=== PATIENT | male | born 1975 | race Caucasian/White ===

== ENCOUNTER 2019-05-01 14:46 | Emergency (ER) | payer MEDICAID, SELFPAY ==
[2019-05-01 15:03] VITALS: PULSE 109; TEMP 36.8; O2SAT 100
--- NOTE | 2019-05-01 15:23 | ED.GENADUL_ITS ---
Discharge Plan Disposition Patient Disposition: OTHER Condition: Stable Discharge Details Chief Complaint: ETOHWithdr Clinical Impression: Alcohol intoxication Primary Care Provider: Elvi Amin ED Provider: Nathen Nicholas Home Meds and New Rx's Prescriptions: No Action multivitamin Tablet 1 tab PO DAILY RF: 0 tramadol 50 mg tablet 50 mg PO BID RF: 0 haloperidol 5 mg tablet 5 mg PO Q12H PRN RF: 0 albuterol sulfate [Ventolin HFA] 90 mcg/actuation HFA aerosol inhaler 1 puff IH Q6H PRN (Reason: shortness of breath or wheezing) Qty: 8.5 RF: 2 acetaminophen 325 mg capsule 650 mg PO ONCE PRNRF: 0 clonazepam 1 mg tablet 1 mg PO BID RF: 0 celecoxib [Celebrex] 100 mg capsule 100 mg PO BID RF: 0 Biotene Moisturizing Mouth [place],Non-Aerosol 1 applic MM BID PRNRF: 0 venlafaxine 150 mg tablet extended release 24hr 150 mg PO DAILY RF: 0 sodium chloride [Deep Sea Nasal] 0.65 % aerosol,spray 1 spray RICKIE Q12H PRN RF: 0 Anbesol (benzocaine) 10 % gel 1 applic MM Q6H PRN RF: 0 haloperidol 1 mg tablet 4 mg PO BID RF: 0 quetiapine [Seroquel] 200 mg tablet 200 mg PO HS RF: 0 vitamin E 200 unit capsule 400 unit PO DAILY RF: 0 Discharge Instructions Instructions: Alcohol Intoxication (ED) Additional Instructions: You are notably intoxicated. He will be reassessed by mental health once he is sober up. You are being given to the custody of [place] police at this time. Medical Decision Making This is a 43-year-old male with past medical history of schizophrenia, alcoholism, who presents today intoxicated. He recently is been running away from a penitentiary and getting notably intoxicated. Today he ran away from his penitentiary and got notably intoxicated. He was with [place] police but he refused to give a breathalyzer to [place] police. Because of this they were unable to keep him in the intoxicated holding tank until he was seen, assessed, and alcohol level could be assessed. He was brought to the ED for assessment of this. Exam demonstrates an intoxicated male with stable vital signs. No focal neurologic deficits. No complaints of chest or abdominal pain. No significant abnormalities noted on exam. No signs of obtundation. Although he is intoxicated his GCS is stable, requiring no additional intervention. Currently he denies any homicidal or suicidal ideations. Alcohol level is 314.7. Clinically he shows no clinical evidence of life-threatening illness requiring further medical management. I do feel that he at this time is medically cleared for disposition to the intoxication area for sobering. I did discuss this with mental health, they agree with this plan, and also feel that he can be seen and reassessed there. I do think it is very important that he is reassessed after he cirilo up. Mental health agrees to this. Patient will be given to the care of the [facility] police and the patient be brought to the intoxication center. I have extensively reviewed the treatment plan and discharge instructions with the patient. I have addressed all patient concerns at this time. The patient was made aware of what symptoms to monitor for that would warrant a return to the emergency department. Discussed the plan with the patient, they demonstrate verbal understanding and agreement with our assessment and plan at this time. HPI General Date/Time Provider Initiated Documentation: 05/01/19 14:48 . HPI Narrative: This is a 43-year-old male with a past medical history of PTSD, schizophrenia, and alcoholism who presents today for intoxication. He usually resides at a penitentiary, however he recently has been leaving the penitentiary and getting notably drunk. He was found in a field notably intoxicated today. Currently the weather is pleasant and not overly hot or cold. State police found the patient, however the patient refused to give a breathalyzer alcohol. Because of this and the uncertainty of his alcohol level he was brought to the ER for further assessment. Currently the patient appears intoxicated and aside from making comments related to his intoxication and his distrust of medical and police staff he has no other complaints. Related Data Home Medications Medication Instructions Recorded Confirmed acetaminophen 325 mg capsule 650 mg PO ONCE PRN cap 04/25/19 04/30/19 benzocaine 10 % mucosal gel 1 applic MM Q6H PRN gm 04/27/19 04/30/19 celecoxib 100 mg capsule 100 mg PO BID 04/27/19 04/30/19 clonazepam 1 mg tablet 1 mg PO BID 04/27/19 04/30/19 saliva stimulant comb. no.3 1 applic MM BID PRN ml 04/27/19 04/30/19 sodium chloride 0.65 % nasal spray 1 spray RICKIE Q12H PRN ml 04/27/19 04/30/19 aerosol venlafaxine 150 mg tablet,extended 150 mg PO DAILY 04/27/19 04/30/19 release 24 hr albuterol sulfate 90 mcg/actuation 1 puff IH Q6H PRN #8.5 gm 04/30/19 04/30/19 aerosol inhaler haloperidol 1 mg tablet 4 mg PO BID tab 04/30/19 04/30/19 haloperidol 5 mg tablet 5 mg PO Q12H PRN tab 04/30/19 04/30/19 multivitamin 1 tab PO DAILY 04/30/19 04/30/19 quetiapine 200 mg tablet 200 mg PO HS tab 04/30/19 04/30/19 tramadol 50 mg tablet 50 mg PO BID 04/30/19 04/30/19 vitamin E 200 unit capsule 400 unit PO DAILY cap 04/30/19 04/30/19 Previous Rx's Medication Instructions Recorded albuterol sulfate 90 mcg/actuation 1 puff IH Q6H PRN #8.5 gm 04/30/19 aerosol inhaler Allergies Allergy/AdvReac Type Severity Reaction Status Date / Time lactose AdvReac Verified 04/30/19 11:36 General Stated Complaint: PsychEval ESTHER: 4 Review of Systems Review of Systems All systems reviewed & are unremarkable except as noted in HPI and below PFSH Social History (Updated 04/30/19 @ 11:37 by Diana Gibson LPN) Smoking/Tobacco Use Status: Current every day Tobacco Type: cigarettes Tobacco: How many years used: 30 Alcohol Intake: current Drug use: Never Substance use type: does not use Household members: other Details: Lives in Assisted Living Home Housing: other Details: [place] Communication Needs: None Education Level: other Details: 9th grade current occupation: disabled What type of physical activity do you participate in: none Seatbelt use: always Drive intox or ride w/intox otr truck driver: No Water heater temp set <120 deg: Yes Working smoke detector in home: Yes Fire extinguisher in home: Yes Carbon monox detector in home: Yes Do you feel safe at home: No (unable to assess) Do you feel safe in your relationship?: No Exam Narrative Exam Narrative: 1.Const: Disheveled. 2.Eyes: PERRL, no conjunctival injection, and symmetrical lids. 3.ENT: Atraumatic external nose and ears. Dry MM. Neck: Symmetric, trachea midline, No thyromegaly. 4.CVS: +S1/S2, No murmurs or gallops. Peripheral pulses 2+ and equal in all extremities. Brisk capillary refill in all extremities. 5.RESP: Unlabored respiratory effort. Clear to auscultation bilaterally. No wheezes rales or rhonchi 6.GI: Soft, Nontender/Nondistended, No hepatosplenomegaly. No guarding or rebound. 7.MSK: Normocephalic/Atraumatic, Extremities w/o deformity or ttp No cyanosis or clubbing, Normal movement of all extremities 8.Skin: Warm, Dry. No rashes or lesions. 9.Neuro: director broadcast II-XII grossly intact. Sensation grossly intact, no focal neurologic deficits. 10.Psych: Notably intoxicated. GCS of 14. No evidence of airway compromise. Course Vital Signs Temperature 36.8 C 05/01/19 15:03 Pulse 109 H 05/01/19 15:03 Pulse Oximetry 100 05/01/19 15:03 Temperature 36.8 C 05/01/19 15:03 Pulse 109 H 05/01/19 15:03 Pulse Oximetry 100 05/01/19 15:03 Oxygen Delivery Method Room Air 05/01/19 15:03 Oxygen Flow Rate 0 05/01/19 15:03
[2019-05-01 15:39] LABS: ETHANOL BLOOD 314.7 mg/dL (<3)
[2019-05-01 15:59] VITALS: BP 104/68
== END 2019-05-01 16:16 | disposition other institution (70) ==
PROVIDERS: Emergency Provider Student in an Organized Health Care Education/Training Program; PCP Nurse Practitioner
DX: F10.220 Alcohol dependence with intoxication, uncomplicated (principal); Y90.8 Blood alcohol level of 240 mg/100 ml or more; F20.9 Schizophrenia, unspecified
CPT/HCPCS: 36415; 99285; 80320; 99283

== ENCOUNTER 2019-05-03 18:30 | Emergency (ER) | payer MEDICAID, SELFPAY ==
[2019-05-03 19:24] LABS: Abs Immature Grans 0.03 k/cumm (0.0-0.09); Absolute Basophil Count 0.02 k/cumm (0.0-0.2); Absolute Eosinophil Count 0.03 k/cumm (0.0-0.7); Absolute Lymphocyte Count 3.84 k/cumm (1.2-3.4); Absolute Monocyte Count 0.64 k/cumm (0.11-0.7); Absolute Neutrophil Count 6.79 k/cumm (1.2-6.7); Basophils % 0.2; Eosinophils % 0.3; HCT 46.3 % (40.0-50.0); HGB 16.4 g/dL (13.5-17.5); Immature Grans % 0.3; Lymphocytes % 33.8; Mean Corp. HGB Concentration 35.4 g/dL (32.0-36.0); Mean Corpuscular Hemoglobin 31.5 pg (27.0-33.0); Mean Platelet Volume 10.3 fL (8.0-11.0); Monocytes % 5.6; Neutrophils % 59.8; Platelet Count 250 x1000/uL (130-400); RBC Distribution Width 12.7 % (11.8-14.1); White Blood Cell Count 11.35 k/cumm (4.4-10.8)
[2019-05-03 19:26] VITALS: BP 123/71; PULSE 91; RESP 16; TEMP 36.5; O2SAT 95
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
[2019-05-03 19:42] LABS: Bilirubin Negative (Negative); Blood Negative (Negative); Clarity Clear (Clear); Glucose Negative (Negative); Ketones Negative (Negative); Leukocyte Esterase Negative (Negative); Nitrite Negative (Negative); Specific Gravity <= 1.005 (1.005-1.025); Urobilinogen 0.2 EU/dL (Up TO 0.2)
[2019-05-03 19:46] LABS: *AMPHETAMINES SCREEN URINE Negative (Negative); *BARBITURATES SCREEN URINE Negative (Negative); *BENZODIAZEPINES SCREEN URINE Negative (Negative); Cannabinoids THC Negative (Negative); Cocaine Screen,Urine Negative (Negative); METHADONE URINE SCREEN Negative (Negative); OPIATES URINE SCREEN Negative (Negative)
[2019-05-03 19:47] LABS: BUN 6 mg/dL (7-18); CREATININE 0.71 mg/dL (0.70-1.30); Calcium 8.5 mg/dL (8.5-10.1); Glucose 97 mg/dL (70-100)
[2019-05-03 19:48] LABS: ALT 45 U/L (16-63); AST 46 U/L (15-37); Alkaline Phosphatase 68 U/L (46-116); Anion Gap 13.2 mmol/L (3-11); Bilirubin, Total 0.3 mg/dL (0.2-1.0); CO2 26.8 mmol/L (21.0-32.0); Chloride 103 mmol/L (98-107); Magnesium 2.1 mg/dL (1.8-2.4); Potassium 3.2 mmol/L (3.5-5.1); Sodium 143 mmol/L (136-145); Total Protein 7.5 g/dL (6.4-8.2)
[2019-05-03 19:53] LABS: Tricyclic Antidepressants Negative (Negative)
[2019-05-03 19:53] LABS: ETHANOL BLOOD 318.6 mg/dL (<3)
--- NOTE | 2019-05-03 19:53 | DI.CT_ITS ---
SYMPTOM/DIAGNOSIS: FALL, HEAD TRAUMA, INTOXICATED NONCONTRAST HEAD CT: The exam is somewhat limited by motion artifact. There is no evidence of intracranial hemorrhage or skull fracture. The ventricles are normal in size. The sinuses appear clear where visualized. IMPRESSION: Mildly limited exam due to motion. No acute abnormality. CT CERVICAL SPINE: There is no evidence of fracture or subluxation. There is no prevertebral soft tissue swelling. There are mild degenerative disc changes. IMPRESSION: No acute abnormality.
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
[2019-05-03] MEDS: Acetaminophen 325 MG TAB 650 MG PO (20:52)
[2019-05-03] MEDS: Potassium Chloride 20 MEQ TABCR 40 MEQ PO (20:53)
--- NOTE | 2019-05-03 20:55 | NUR.NOTE ---
Nursing Note: found pt smoking a cigarette in the room took the cigarette from pt and took his cigartetes from him pt got up set and followed me out of the room i helped pt back to his room. and told him there was no smoking in the hospital told pt he could have his cigarettes back when he left the building
--- NOTE | 2019-05-03 20:58 | NUR.NOTE ---
Nursing Note: now i have a cpso to sit with pt to help keep him in his room until [facility] get here
--- NOTE | 2019-05-03 21:20 | NUR.NOTE ---
Nursing Note: Patient is disruptive to the unit and other patients. Creating an unsafe environment for himself and others. Threatening staff to take them out. Pt demanding Dilaudid or pain medication that he can feel in his head. Pt very agitated and aggressive towards male staff. Patient very unsteady with gait and stumbles frequently. This scribe caught him a few times. Patient refusing to let staff or promotion writer remove his personal belongings which included a marijuana pipe and wallet with chain and other items in pockets. This scribe was able to take a needle molder and a can of tobacco which had fallen on floor. Patient demanding to go and smoke. Patient required redirection but continued to increase his aggressive behaviors with MD and LAUREANO present. was called to ER as patient requested to speak to . Patient continued to escalate and requested that [facility] be called as patient is medically cleared and the situation was becoming dangerous with patient's escalating and threatening behaviors. [facility] arrived and agreed to take patient in protective custody to the [facility] until [facility] could come and evaluate and complete paperwork for going to [facility] for protective custody.
== END 2019-05-03 21:16 | disposition home or self-care (01) ==
PROVIDERS: Emergency Provider Nurse Practitioner Family; PCP Nurse Practitioner
DX: F10.120 Alcohol abuse with intoxication, uncomplicated (principal); S00.81XA Abrasion of other part of head, initial encounter; S80.211A Abrasion, right knee, initial encounter; W01.0XXA Fall on same level from slipping, tripping and stumbling without subsequent striking against object, initial encounter
CPT/HCPCS: 36415; 80053; 80307; 99284; 70450; 72125; 80320; 81003; 83735; 85025

== ENCOUNTER 2019-05-04 20:23 | Emergency (ER) | payer MEDICAID, SELFPAY ==
[2019-05-04 20:20] VITALS: BP 144/94; PULSE 108; RESP 16; TEMP 36.6; O2SAT 96
--- NOTE | 2019-05-04 20:33 | ED.GENADUL_ITS ---
Discharge Plan Disposition Patient Disposition: HOME Condition: Stable Discharge Details Clinical Impression: Alcohol abuse Primary Care Provider: Elvi Amin ED Provider: Surinder Charles Home Meds and New Rx's Prescriptions: Continued multivitamin Tablet 1 tab PO DAILY RF: 0 tramadol 50 mg tablet 50 mg PO BID RF: 0 haloperidol 5 mg tablet 5 mg PO Q12H PRN RF: 0 albuterol sulfate [Ventolin HFA] 90 mcg/actuation HFA aerosol inhaler 1 puff IH Q6H PRN (Reason: shortness of breath or wheezing) Qty: 8.5 RF: 2 acetaminophen 325 mg capsule 650 mg PO ONCE PRNRF: 0 clonazepam 1 mg tablet 1 mg PO BID RF: 0 celecoxib [Celebrex] 100 mg capsule 100 mg PO BID RF: 0 Biotene Moisturizing Mouth [place],Non-Aerosol 1 applic MM BID PRNRF: 0 venlafaxine 150 mg tablet extended release 24hr 150 mg PO DAILY RF: 0 sodium chloride [Deep Sea Nasal] 0.65 % aerosol,spray 1 spray RICKIE Q12H PRN RF: 0 Anbesol (benzocaine) 10 % gel 1 applic MM Q6H PRN RF: 0 haloperidol 1 mg tablet 4 mg PO BID RF: 0 quetiapine [Seroquel] 200 mg tablet 200 mg PO HS RF: 0 vitamin E 200 unit capsule 400 unit PO DAILY RF: 0 Discharge Instructions Instructions: Abuse of Alcohol (ED) Additional Instructions: you are medically cleared to be discharged from the emergency department until sober. Medical Decision Making 43 yo male with hx of alcohol abuse who was seen last night after a fall while intoxicated with negative imaging comes in again with intoxication. Has no new trauma to the head, states his right toe hurts from falling last night. Has no signs of trauma to the toe and has full rom without swelling so do not feel xrays indicated given unlikely fracture. He is hd stable without other complaints. He is caox4, does smell of alcohol and admits to drinking tonight. Given lack of other complaints do not feel other workup indicated, has full rom of all extremities. Feel he can be d/c'd in PD care until sober Differential Diagnosis contusion, sprain, alcohol intoxication HPI General Mode of arrival: EMS . Date/Time Provider Initiated Documentation: 05/04/19 20:33 . Limitations to Documentation: other (intoxication) . Information obtained by: patient . History of Present Illness 43 year old M presents to the emergency department with the chief complaint of right toe pain, and it has been constant. No relieving factors improve symptom(s), No exacerbating factors reported . Patient did receive the following treatments prior to arrival, none Related Data Home Medications Medication Instructions Recorded Confirmed acetaminophen 325 mg capsule 650 mg PO ONCE PRN cap 04/25/19 05/03/19 benzocaine 10 % mucosal gel 1 applic MM Q6H PRN gm 04/27/19 05/03/19 celecoxib 100 mg capsule 100 mg PO BID 04/27/19 05/03/19 clonazepam 1 mg tablet 1 mg PO BID 04/27/19 05/03/19 saliva stimulant comb. no.3 1 applic MM BID PRN ml 04/27/19 05/03/19 sodium chloride 0.65 % nasal spray 1 spray RICKIE Q12H PRN ml 04/27/19 05/03/19 aerosol venlafaxine 150 mg tablet,extended 150 mg PO DAILY 04/27/19 05/03/19 release 24 hr albuterol sulfate 90 mcg/actuation 1 puff IH Q6H PRN #8.5 gm 04/30/19 05/03/19 aerosol inhaler haloperidol 1 mg tablet 4 mg PO BID tab 04/30/19 05/03/19 haloperidol 5 mg tablet 5 mg PO Q12H PRN tab 04/30/19 05/03/19 multivitamin 1 tab PO DAILY 04/30/19 05/03/19 quetiapine 200 mg tablet 200 mg PO HS tab 04/30/19 05/03/19 tramadol 50 mg tablet 50 mg PO BID 04/30/19 05/03/19 vitamin E 200 unit capsule 400 unit PO DAILY cap 04/30/19 05/03/19 Previous Rx's Medication Instructions Recorded albuterol sulfate 90 mcg/actuation 1 puff IH Q6H PRN #8.5 gm 04/30/19 aerosol inhaler Allergies Allergy/AdvReac Type Severity Reaction Status Date / Time lactose AdvReac Verified 05/03/19 19:38 General ESTHER: 4 Review of Systems Review of Systems All systems reviewed & are unremarkable except as noted in HPI and below Constitutional Denies chills, Denies fever(s) and Denies weakness Cardiovascular Denies chest pain and Denies dyspnea Respiratory Denies cough and Denies dyspnea Gastrointestinal Denies abdominal pain, Denies nausea and Denies vomiting Musculoskeletal Denies joint swelling Neurologic Denies weakness [facility] Social History Smoking/Tobacco Use Status: Current every day Tobacco Type: cigarettes Tobacco: How many years used: 30 Alcohol Intake: current Drug use: Never Substance use type: marijuana Details: pt states that he was drinking cider and smells of etoh and said he had thc in him Household members: other Details: Lives in Assisted Living Home Housing: other Details: [place] Communication Needs: None Education Level: other Details: 9th grade current occupation: disabled What type of physical activity do you participate in: none Seatbelt use: always Drive intox or ride w/intox driver's license 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: No Water heater temp set <120 deg: Yes Working smoke detector in home: Yes Fire extinguisher in home: Yes Carbon monox detector in home: Yes Do you feel safe at home: No (unable to assess) Do you feel safe in your relationship?: No Exam Const General: no acute distress Orientation: alert HENMT Head: normal to inspection Ears: external ears normal General nose exam: external nose normal Mouth: moist mucous membranes Eyes General: appearance normal, both eyes and all related structures Neck Neck: normal visual inspection Resp Effort & Inspection: normal respiratory effort and able to speak in complete sen tences Cardio Rate: regular rate Skin General skin exam: no rashes or lesions noted Neuro General: alert and oriented x3 Extrem General: normal to inspection Psych Mental Status: mental status grossly normal
[2019-05-04 20:46] VITALS: RESP 16
[2019-05-04 20:49] VITALS: BP 144/94; PULSE 108; RESP 16; TEMP 36.6; O2SAT 96
== END 2019-05-04 20:43 | disposition home or self-care (01) ==
PROVIDERS: Emergency Provider Emergency Medicine; PCP Nurse Practitioner
DX: M79.674 Pain in right toe(s) (principal); F10.120 Alcohol abuse with intoxication, uncomplicated; J44.9 Chronic obstructive pulmonary disease, unspecified; F17.210 Nicotine dependence, cigarettes, uncomplicated; F25.0 Schizoaffective disorder, bipolar type
CPT/HCPCS: 36416; 82962; 99285; 99284

== ENCOUNTER 2019-05-07 15:30 | Emergency (ER) | payer MEDICAID, SELFPAY ==
[2019-05-07] VITALS (52 sets, daily range): BP systolic 99–138; BP diastolic 62–86; PULSE 86–101; RESP 16–26; TEMP 36.3–36.6; O2SAT 83–99
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
--- NOTE | 2019-05-07 16:10 | PDOC.MHCN ---
Date of service: 05/07/19 Time of Service: 16:10
--- NOTE | 2019-05-07 16:11 | PDOC.MHCN ---
Mental Health Crisis Note Presenting Issue How did you arrive at the ED and why did you come: Patient was brought to the ER by ambulance after being picked up by Police for nbeing intoxicated. Precipitating Factors Patient denies any intent to harm self or nothers. Denies H/I and S/I Disposition BEHAVIOR: Patient was cooperating with staff. EYE CONTACT: Avoident. MOOD: Subdued, as a result of intoxication. AFFECT: Varied. APPETITE: Patient reports being hungry. SLEEP(trouble falling/staying asleep: Unknown. The patient was having difficult staying awake. Plan Patient is to be taken into custody as an intoxicated person.
--- NOTE | 2019-05-07 16:32 | NUR.NOTE ---
Nursing Note: Jeff RUIZ states he gave Marlon his evening meds at approx 1330 today--he is unsure what they were--according to His [facility] med sheet his 1999 evening meds include Celecoxib 100 mg--Haloperidol 4 mg---? Tramadol 50 mg--and Quetiapine XR 200 mg.-----Per Melida KabaPreet gave him his AM and PM medications yesturday-----See Med MAR from [facility]. PT has no meds from them because he has eloped from them and has been in [facility] for 1.5 weeks.
[2019-05-07] MEDS: Normal Saline 1,000 ML 1000 ML IV (17:15)
[2019-05-07] MEDS: Thiamine 200 MG/2 ML VIAL 100 MG IV (17:22)
[2019-05-07 17:25] LABS: Abs Immature Grans 0.02 k/cumm (0.0-0.09); Absolute Basophil Count 0.02 k/cumm (0.0-0.2); Absolute Eosinophil Count 0.06 k/cumm (0.0-0.7); Absolute Monocyte Count 0.62 k/cumm (0.11-0.7); Absolute Neutrophil Count 3.85 k/cumm (1.2-6.7); Basophils % 0.2; Eosinophils % 0.7; HCT 43.5 % (40.0-50.0); HGB 15.2 g/dL (13.5-17.5); Immature Grans % 0.2; Lymphocytes % 43.4; Mean Corp. HGB Concentration 34.9 g/dL (32.0-36.0); Mean Corpuscular Hemoglobin 30.8 pg (27.0-33.0); Mean Corpuscular Volume 88.1 fL (80-95); Mean Platelet Volume 9.8 fL (8.0-11.0); Monocytes % 7.7; Neutrophils % 47.8; Platelet Count 212 x1000/uL (130-400); RBC 4.94 m/cumm (4.50-6.00); RBC Distribution Width 12.7 % (11.8-14.1); White Blood Cell Count 8.07 k/cumm (4.4-10.8)
[2019-05-07 17:26] LABS: *AMPHETAMINES SCREEN URINE Negative (Negative); *BARBITURATES SCREEN URINE Negative (Negative); *BENZODIAZEPINES SCREEN URINE Negative (Negative); Cannabinoids THC Negative (Negative); Cocaine Screen,Urine Negative (Negative); METHADONE URINE SCREEN Negative (Negative); OPIATES URINE SCREEN Negative (Negative)
[2019-05-07 17:27] LABS: Tricyclic Antidepressants Negative (Negative)
[2019-05-07 17:40] LABS: ALT 35 U/L (16-63); AST 27 U/L (15-37); Albumin 3.6 g/dL (3.4-5.0); Alkaline Phosphatase 77 U/L (46-116); Anion Gap 10.9 mmol/L (3-11); BUN 4 mg/dL (7-18); Bilirubin, Total 0.2 mg/dL (0.2-1.0); CO2 29.1 mmol/L (21.0-32.0); CREATININE 0.59 mg/dL (0.70-1.30); Calcium 8.3 mg/dL (8.5-10.1); Chloride 107 mmol/L (98-107); Glucose 108 mg/dL (70-100); Potassium 3.6 mmol/L (3.5-5.1); Sodium 147 mmol/L (136-145); Total Protein 6.7 g/dL (6.4-8.2)
[2019-05-07 17:41] LABS: ETHANOL BLOOD 202.4 mg/dL (<3)
--- NOTE | 2019-05-07 21:24 | NUR.NOTE ---
Nursing Note: pt awake and alert. had refused CT but after talking with the MD he has agreed to the CT and then get some food.
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
== END 2019-05-07 22:20 | disposition home or self-care (01) ==
PROVIDERS: Emergency Provider Student in an Organized Health Care Education/Training Program; PCP Nurse Practitioner
DX: F10.220 Alcohol dependence with intoxication, uncomplicated (principal); Y90.7 Blood alcohol level of 200-239 mg/100 ml; J44.9 Chronic obstructive pulmonary disease, unspecified; F17.210 Nicotine dependence, cigarettes, uncomplicated
CPT/HCPCS: 36415; 36416; 80053; 80307; 82962; 93005; 96361; 96374; 99285; 70450; 80320; 85025; 93010; J2310

== ENCOUNTER 2019-05-08 11:21 | Emergency (ER) | payer MEDICAID, SELFPAY ==
[2019-05-08 11:38] VITALS: BP 144/98; PULSE 111; RESP 24; TEMP 36.7; O2SAT 96
--- NOTE | 2019-05-08 11:38 | ED.GENADUL_ITS ---
Discharge Plan Disposition Patient Disposition: HOME Condition: Stable Discharge Details Chief Complaint: ETOHWithdr Clinical Impression: ETOH abuse Primary Care Provider: Elvi Amin ED Provider: Nathen Nicholas Home Meds and New Rx's Prescriptions: No Action multivitamin Tablet 1 tab PO DAILY RF: 0 tramadol 50 mg tablet 50 mg PO BID RF: 0 haloperidol 5 mg tablet 5 mg PO Q12H PRN RF: 0 albuterol sulfate [Ventolin HFA] 90 mcg/actuation HFA aerosol inhaler 1 puff IH Q6H PRN (Reason: shortness of breath or wheezing) Qty: 8.5 RF: 2 acetaminophen 325 mg capsule 650 mg PO ONCE PRNRF: 0 clonazepam 1 mg tablet 1 mg PO BID RF: 0 celecoxib [Celebrex] 100 mg capsule 100 mg PO BID RF: 0 Biotene Moisturizing [place]outh [place],Non-Aerosol 1 applic MM BID PRNRF: 0 venlafaxine 150 mg tablet extended release 24hr 150 mg PO DAILY RF: 0 sodium chloride [Deep Sea Nasal] 0.65 % aerosol,spray 1 spray RICKIE Q12H PRN RF: 0 Anbesol (benzocaine) 10 % gel 1 applic MM Q6H PRN RF: 0 haloperidol 1 mg tablet 4 mg PO BID RF: 0 quetiapine [Seroquel] 200 mg tablet 200 mg PO HS RF: 0 vitamin E 200 unit capsule 400 unit PO DAILY RF: 0 Discharge Instructions Instructions: Abuse of Alcohol (ED) Additional Instructions: Please stop drinking alcohol. He will be discharged to the custody of police for sobering. Please utilize your multiple resources for recovery coaching. If you notice any worsening of your symptoms, or any new symptoms such as v omiting, diarrhea, fever, chills, shortness of breath, chest pain, numbness, weakness, or fainting , please return immediately to the emergency department for reevaluation. Please follow up with your primary care provider as soon as possible for reassessment and reevaluation. As always, it was a pleasure participating in your medical care today. Referrals: Elvi Amin, [facility] [Primary Care Provider] - Medical Decision Making This is a 43-year-old male with past medical history of schizophrenia, alcoholism, who presents today intoxicated. He recently is been running away from a fdc and getting notably intoxicated. He presents today for evaluation of intoxication by police. Patient has had a recent work-up and imaging within the last [address] scan of the head. He presents today again for evaluation of intoxication after being found at the front doors of [facility]. He is brought in by police. He is come here for medical screening. Initial alcohol blew 0.3. Physical exam here demonstrates well- healing abrasion of his nose which are consistent with prior examinations when he initially fell. No evidence of acute trauma acute fracture process. No other abnormalities on exam except for notable intoxication. We did discuss the case with mental health screener, as well as law enforcement. At this time with reassuring vital signs, no evidence of significant acute trauma, and signs and symptoms clinically consistent with alcohol intoxication and not toxic alcohol syndrome, I feel he can be discharged to the custody of police officers for sobering at the police station. I have extensively reviewed the treatment plan and discharge instructions with the patient. I have addressed all patient concerns at this time. The patient was made aware of what symptoms to monitor for that would warrant a return to the emergency department. Discussed the plan with the patient, they demonstrate verbal understanding and agreement with our assessment and plan at this time. HPI General Date/Time Provider Initiated Documentation: 05/08/19 11:28 . HPI Narrative: This is a 43-year-old male who presents for evaluation of intoxication. The patient has a past medical history of schizophrenia, alcoholism, who presents today intoxicated. He recently is been running away from a fdc and getting notably intoxicated. He presents again today after being found in front of the [facility] in [place] notably intoxicated, stumbling. He has been seen every other day for the past few days. He has had a recent CT scan of his head less than 24 hours ago which was nega tive for any evidence of acute fracture. He denies any recent trauma to his head since then. He is brought here under the custody of police at this time. Patient has no complaints, does appear notably intoxicated. He is otherwise pleasant. Notably his symptoms are significantly less severe than previous times that he is been here. Related Data Home Medications Medication Instructions Recorded Confirmed acetaminophen 325 mg capsule 650 mg PO ONCE PRN cap 04/25/19 05/03/19 benzocaine 10 % mucosal gel 1 applic MM Q6H PRN gm 04/27/19 05/03/19 celecoxib 100 mg capsule 100 mg PO BID 04/27/19 05/03/19 clonazepam 1 mg tablet 1 mg PO BID 04/27/19 05/03/19 saliva stimulant comb. no.3 1 applic MM BID PRN ml 04/27/19 05/03/19 sodium chloride 0.65 % nasal spray 1 spray RICKIE Q12H PRN ml 04/27/19 05/03/19 aerosol venlafaxine 150 mg tablet,extended 150 mg PO DAILY 04/27/19 05/03/19 release 24 hr albuterol sulfate 90 mcg/actuation 1 puff IH Q6H PRN #8.5 gm 04/30/19 05/03/19 aerosol inhaler haloperidol 1 mg tablet 4 mg PO BID tab 04/30/19 05/03/19 haloperidol 5 mg tablet 5 mg PO Q12H PRN tab 04/30/19 05/03/19 multivitamin 1 tab PO DAILY 04/30/19 05/03/19 quetiapine 200 mg tablet 200 mg PO HS tab 04/30/19 05/03/19 tramadol 50 mg tablet 50 mg PO BID 04/30/19 05/03/19 vitamin E 200 unit capsule 400 unit PO DAILY cap 04/30/19 05/03/19 Previous Rx's Medication Instructions Recorded albuterol sulfate 90 mcg/actuation 1 puff IH Q6H PRN #8.5 gm 04/30/19 aerosol inhaler Allergies Allergy/AdvReac Type Severity Reaction Status Date / Time lactose AdvReac Verified 05/08/19 11:41 General ESTHER: 3 Review of Systems Review of Systems All systems reviewed & are unremarkable except as noted in HPI and below PFSH Social History Smoking/Tobacco Use Status: Current every day Tobacco Type: cigarettes Tobacco: How many years used: 30 Alcohol Intake: current Alcohol Intake frequency: 3 or more drinks per day Alcohol type: beer and hard liquor Drug use: Occasionally Substance use type: marijuana Household members: other Details: Lives in Assisted Living Home Housing: other Details: [place] Communication Needs: None Education Level: other Details: 9th grade current occupation: disabled What type of physical activity do you participate in: none Seatbelt use: always 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 3.ENT: Atraumatic external nose and ears. Moist MM. Neck: Symmetric, trachea midline, No thyromegaly. Abrasions over the nose, these appear to be old. No evidence of acute trauma. There is no evidence of raccoon eyes, orantes sign, CSF rhinorrhea, mastoid tenderness, cranial crepitus, hemotympanum, exophthalmos, or hyphema. Patient demonstrates intact dentition with no signs of tooth avulsion or fracture, no signs of jaw deformity, no evidence of a LeFort's fracture, with an intact palate, nose and orbital region. There is no evidence of a nasal septal hematoma. No proptosis. Jaw closes symmetrically. Airway is clear. 4.CVS: +S1/S2, No murmurs or gallops. Peripheral pulses 2+ and equal in all extremities. Brisk capillary refill in all extremities. 5.RESP: Unlabored respiratory effort. Clear to auscultation bilaterally. No wheezes rales or rhonchi 6.GI: Soft, Nontender/Nondistended, No hepatosplenomegaly. No guarding or rebound. 7.MSK: Normocephalic/Atraumatic, Extremities w/o deformity or ttp No cyanosis or clubbing, Normal movement of all extremities 8.Skin: Warm, Dry. No rashes or lesions. 9.Neuro: shredder picker II-XII grossly intact. Sensation grossly intact. 10.Psych: (AAO) x3. Notably intoxicated.
== END 2019-05-08 12:22 | disposition home or self-care (01) ==
LOC: ER 12:25
PROVIDERS: Emergency Provider Student in an Organized Health Care Education/Training Program; PCP Nurse Practitioner
DX: F10.220 Alcohol dependence with intoxication, uncomplicated (principal)
CPT/HCPCS: 99285; 99283

== ENCOUNTER 2019-05-09 20:42 | Emergency (ER) | payer MEDICAID, SELFPAY ==
[2019-05-09 20:43] VITALS: BP 135/85; PULSE 100; RESP 18; TEMP 36.8; O2SAT 100
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
[2019-05-09 21:10] VITALS: BP 135/85; PULSE 100; RESP 18; O2SAT 96
== END 2019-05-09 21:09 | disposition home or self-care (01) ==
LOC: ER 21:07
PROVIDERS: Emergency Provider Nurse Practitioner Family; PCP Nurse Practitioner
DX: F10.220 Alcohol dependence with intoxication, uncomplicated (principal); Y90.8 Blood alcohol level of 240 mg/100 ml or more; J44.9 Chronic obstructive pulmonary disease, unspecified; F17.210 Nicotine dependence, cigarettes, uncomplicated
CPT/HCPCS: 36416; 82962; 99285; 99283

== ENCOUNTER 2019-05-17 18:26 | Emergency (ER) | payer MEDICAID, SELFPAY ==
[2019-05-17] VITALS (13 sets, daily range): BP systolic 125–136; BP diastolic 73–86; PULSE 107–112; RESP 15–33; TEMP 36.6; O2SAT 97–100
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
[2019-05-17] MEDS: Normal Saline 1,000 ML 1000 ML IV (18:40)
[2019-05-17 19:03] LABS: Abs Immature Grans 0.02 k/cumm (0.0-0.09); Absolute Basophil Count 0.01 k/cumm (0.0-0.2); Absolute Eosinophil Count 0.08 k/cumm (0.0-0.7); Absolute Lymphocyte Count 3.81 k/cumm (1.2-3.4); Absolute Monocyte Count 0.68 k/cumm (0.11-0.7); Basophils % 0.1; HGB 14.7 g/dL (13.5-17.5); Immature Grans % 0.2; Lymphocytes % 46.5; Mean Corp. HGB Concentration 34.2 g/dL (32.0-36.0); Mean Corpuscular Volume 90.7 fL (80-95); Mean Platelet Volume 9.5 fL (8.0-11.0); Monocytes % 8.3; Neutrophils % 43.9; Platelet Count 261 x1000/uL (130-400); RBC 4.74 m/cumm (4.50-6.00); RBC Distribution Width 13.7 % (11.8-14.1)
[2019-05-17 19:13] LABS: Bilirubin Negative (Negative); Blood Negative (Negative); Clarity Clear (Clear); Glucose Negative (Negative); Ketones Negative (Negative); Leukocyte Esterase Negative (Negative); Nitrite Negative (Negative); Specific Gravity <= 1.005 (1.005-1.025); Urobilinogen 0.2 EU/dL (Up TO 0.2); pH 5.5 (5-8)
[2019-05-17 19:19] LABS: ALT 28 U/L (16-63); AST 17 U/L (15-37); Albumin 3.2 g/dL (3.4-5.0); Alkaline Phosphatase 69 U/L (46-116); Anion Gap 12.2 mmol/L (3-11); BUN 6 mg/dL (7-18); Bilirubin, Total 0.2 mg/dL (0.2-1.0); CO2 23.8 mmol/L (21.0-32.0); CREATININE 0.68 mg/dL (0.70-1.30); Calcium 7.8 mg/dL (8.5-10.1); Chloride 108 mmol/L (98-107); Glucose 106 mg/dL (70-100); Sodium 144 mmol/L (136-145); Total Protein 6.6 g/dL (6.4-8.2)
[2019-05-17 19:34] LABS: ETHANOL BLOOD 347.4 mg/dL (<3)
== END 2019-05-17 20:07 | disposition home or self-care (01) ==
PROVIDERS: Emergency Provider Physician Assistant; PCP Nurse Practitioner
DX: F10.220 Alcohol dependence with intoxication, uncomplicated (principal); E83.51 Hypocalcemia
CPT/HCPCS: 36415; 80053; 96360; 99285; 80320; 81003; 85025; 99283

== ENCOUNTER 2019-05-18 19:33 | Emergency (ER) | payer MEDICAID, SELFPAY ==
[2019-05-18] VITALS (14 sets, daily range): BP systolic 111–138; BP diastolic 50–89; PULSE 94–112; RESP 16–22; TEMP 36.6–36.8; O2SAT 97
--- NOTE | 2019-05-18 19:52 | DI.CT_ITS ---
SYMPTOM/DIAGNOSIS: HEAD CT: The study was carried out according to the usual protocol. The patient was uncooperative and the head CT was repeated due to significant motion artifacts. Degradation of image quality secondary to patient motion is again noted. There is no evidence of an intra/extra-axial hemorrhage or infarct or mass. The ventricles are unremarkable. There is no skull fracture. The sinuses are unremarkable. The mastoid air cells are intact. No soft tissue abnormality is seen. SUMMARY: No acute intracranial abnormality is defined. CERVICAL SPINE CT: The study was carried out without contrast enhancement. There is no evidence of an acute fracture or dislocation. There is no evidence of neural or neural foraminal stenosis. The soft tissues are unremarkable. The lung apices as visualized are unremarkable. SUMMARY: No acute abnormality involving the C spine is demonstrated. CHEST/ABDOMEN AND PELVIC CT: The study was carried out according to the usual protocol with an intravenous administration of 100 cc's of Omnipaque 350. CHEST: The thyroid gland is unremarkable. There is no evidence of an infiltrate or pulmonary edema or pulmonary mass or nodularity. There is no pleural effusion or pneumothorax. The heart is normal. No abnormality involving a contracted esophagus is demonstrated. The pulmonary arteries appear intact. The aorta is intact with no evidence of dissection or an aneurysm. There is no mediastinal hematoma. There is no evidence of lymphadenopathy. No acute bony abnormality is seen. The soft tissues appear unremarkable. SUMMARY: No acute process is noted in the chest. ABDOMEN AND PELVIS: The liver is unremarkable. The gallbladder is intact. There is no evidence of ductal dilatation. The pancreas appears normal. Note is made of a hypodensity projected over the anterior spleen on series 35, images 50-55, however correlation on the coronal sagittal reconstructed confirm significant respiratory motion at this level with no perisplenic stranding, the finding is felt to likely be artifactual and not represent a splenic laceration. The adrenals are normal. The kidneys are normal. The visualized portions of the distal esophagus and stomach are unremarkable. The small bowel is normal. There is no evidence of obstruction and no colonic abnormality is seen. The appendix is intact. There is no free air or free fluid in the intraperitoneal space. No acute vascular process is identified and there is no evidence of an aortic aneurysm. There is no evidence of lymphadenopathy. The bladder is very distended measuring up to as much 20 cm. on the craniocaudad images with the bladder dome reaching the level of the umbilicus. The reproductive organs as visualized are intact. There is no acute bony abnormality. The soft tissues are unremarkable. SUMMARY: Allowing for motion artifacts, no acute abnormality is demonstrated in the abdomen or pelvis. Note is made of considerable dilatation of the bladder, consider al catheter placement.
[2019-05-18] MEDS: Normal Saline 1,000 ML 1000 ML IV (19:57)
--- NOTE | 2019-05-18 20:02 | W.ED.GENAD ---
Discharge Plan Disposition Patient Disposition: [facility] Condition: Stable Discharge Details Chief Complaint: Trauma Clinical Impression: ETOH abuse, Fall, Contusion Primary Care Provider: Elvi Amin ED Provider: Nathen Nicholas Home Meds and New Rx's Prescriptions: No Action multivitamin Tablet 1 tab PO DAILY RF: 0 tramadol 50 mg tablet 50 mg PO BID RF: 0 haloperidol 5 mg tablet 5 mg PO Q12H PRN RF: 0 albuterol sulfate [Ventolin HFA] 90 mcg/actuation HFA aerosol inhaler 1 puff IH Q6H PRN (Reason: shortness of breath or wheezing) Qty: 8.5 RF: 2 acetaminophen 325 mg capsule 650 mg PO ONCE PRNRF: 0 clonazepam 1 mg tablet 1 mg PO BID RF: 0 celecoxib [Celebrex] 100 mg capsule 100 mg PO BID RF: 0 Biotene Moisturizing [place],Non-Aerosol 1 applic MM BID PRNRF: 0 venlafaxine 150 mg tablet extended release 24hr 150 mg PO DAILY RF: 0 sodium chloride [Deep Sea Nasal] 0.65 % aerosol,spray 1 spray RICKIE Q12H PRN RF: 0 Anbesol (benzocaine) 10 % gel 1 applic MM Q6H PRN RF: 0 haloperidol 1 mg tablet 4 mg PO BID RF: 0 quetiapine [Seroquel] 200 mg tablet 200 mg PO HS RF: 0 vitamin E 200 unit capsule 400 unit PO DAILY RF: 0 calcium carbonate [Tums] 200 mg calcium (500 mg) tablet,chewable 200 mg PO QID Qty: 30 RF: 0 Discharge Instructions Instructions: Abuse of Alcohol (ED) Additional Instructions: Please cut down on your alcohol intake. Please supplement your diet with potassium rich foods including bananas. If you notice any worsening of your symptoms, or any new symptoms such as vomiting, diarrhea, fever, chills, shortness of breath, chest pain, numbness, weakness, or fainting , please return immediately to the emergency department for reevaluation. Please follow up with your primary care provider as soon as possible for reassessment and reevaluation. As always, it was a pleasure participating in your medical care today. Referrals: Elvi Amin, W[employer] SAW OPERATOR [Primary Care Provider] - Medical Decision Making This is a 43-year-old male with a past medical history of chronic alcoholism who presents today for evaluation after a fall while intoxicated. He has been drinking heavily over the last few days, and today he was on his stoop after a day of drinking when he got up and had a mechanical trip and fall per EMS and police. Which was relayed to them by bystanders. He fell down greater than 7 concrete steps. Had an abrasion to his forehead and nose. Is able to get up on his own, but did require the help of law enforcement to get to the top of his stoop. He was brought into the ER for further evaluation and assessment due to the mechanism. He currently is a notably poor historian, shows no signs of airway compromise, vital signs are stable. No evidence of obtundation. No focal neurologic deficit. Will maintain C-spine precautions and keep him in c-collar. Secondary to his intoxication, inability to give an accurate history, and difficult exam secondary to his intoxication I do feel that imaging is certainly indicated due to the mechanism of his fall. We will get a CT scan of the head and neck, and further thoracic and abdominal imaging. 10:04 PM Laboratory work-up is returned, minimal white count, normal hemoglobin and platelets, VBG demonstrates a minimally elevated PCO2 however pH is stable. Electrolytes are stable, potassium is 3.2, and will be treated with oral supplementation. Magnesium minimally elevated. Lipase normal, alcohol 322. CT scan of the chest abdomen pelvis demonstrates no acute process but does demonstrate evidence of an atypical abnormality in the spleen, however this is noted to be artifact by virtual radiology. I did contact the read discussed the case with the virtual radiologist specifically and he assures me that upon review of the reconstruction images that this is artifact and not evidence of a splenic laceration. He denies any other acute process in the abdomen at this time. Pending CT head results at this time. This time the patient remains clinically stable. We will maintain the c-collar until C-spine results have returned. If the patient's CT head neck are unremarkable I do feel that he can be safely discharged after being medically cleared to the custody of police for sobering in the intoxication facility. 10:[address] scan of the head neck is negative for acute process acute intercranial bleed or fracture per virtual radiology. Of note the patient did have a significant urinary movement as soon as he completed his CT scan. No evidence of bowel or bladder incontinence. At this time I feel the patient is currently medically cleared and stable for discharge to the police facility. I have extensively reviewed the treatment plan and discharge instructions with the patient. I have addressed all patient concerns at this time. The patient was made aware of what symptoms to monitor for that would warrant a return to the emergency department. Discussed the plan with the patient, they demonstrate verbal understanding and agreement with our assessment and plan at this time. FINDINGS: Detail is limited secondary to motion degradation of image quality. Brain: Typical for age. No hemorrhage. No evidence of acute infarct. No mass. Ventricles: No ventriculomegaly. Bones/joints: Unremarkable. Sinuses: No sinus fluid. Mastoid air cells: Unremarkable. Soft tissues: Unremarkable. IMPRESSION: No obvious acute intracranial abnormality FINDINGS: Vertebrae: No acute fracture. Normal alignment. Vertebral body heights preserved. Discs/Spinal canal/Neural foramina: Typical for age. Soft tissues: Unremarkable. Lungs: Lung apices are unremarkable as visualized. IMPRESSION: No acute findings. Thank you for allowing us to participate in the care of your patient. Dictated and Authenticated by: Obed Glass MD FINDINGS: Thyroid: The visualized thyroid gland is unremarkable. Lungs: No tracheobronchial abnormalities. No infiltrates or edema. No pulmonary nodules or mass lesions are identified. Pleural space: No pleural effusions. No pneumothorax. Heart: Heart size normal. Mediastinum: The esophagus is largely contracted without gross abnormality. Pulmonary arteries: The pulmonary arteries demonstrate no gross abnormality. Aorta: The aorta enhances appropriately without evidence of dissection or aneurysm. No mediastinal hematoma. Lymph nodes: No supraclavicular or axillary adenopathy. No mediastinal or hilar adenopathy. Bones/joints: No acute osseous abnormalities are identified. Soft tissues: Soft tissues of the thoracic wall demonstrate no gross abnormality. IMPRESSION: No acute thoracic process is identified. FINDINGS: Liver: Normal size and contour. No mass lesions. No intrahepatic biliary ductal dilatation. Gallbladder and bile ducts: Normal. No calcified stones. No ductal dilation. Pancreas: Normal. No inflammatory changes or ductal dilation. Spleen: There is irregular hypodensity projecting in the anterior splenic margin on series 35, images 50-55, however correlation with coronal and sagittal reconstructions confirm significant respiratory motion artifact at this level and there is no perisplenic stranding present. This is felt to be artifactual and is not felt to represent splenic laceration. Adrenals: Normal. No adrenal mass. Kidneys and ureters: No acute abnormalities. No hydronephrosis or hydroureter. No urinary tract stones are identified. Stomach and bowel: The visualized distal esophagus and stomach are normal. The small bowel is normal with no evidence of obstruction. No acute colonic abnormalities. Appendix: The appendix is normal in caliber and demonstrates no evidence of appendicitis. Intraperitoneal space: No free fluid or air. Vasculature: No acute process. No abdominal aortic aneurysm. Lymph nodes: No adenopathy. Bladder: The urinary bladder is very distended measuring 20 cm craniocaudal with the bladder dome reaching the level of the umbilicus. Consider Smith catheter placement. Reproductive: Unremarkable as visualized. Bones/joints: No acute osseous abnormalities. Soft tissues: Unremarkable. IMPRESSION: 1. Motion artifact produces mild overall limitation to the exam. 2. No acute injuries are identified in the abdomen/pelvis. 3. The urinary bladder is very distended measuring 20 cm craniocaudal. Consider Smith catheter placement. Thank you for allowing us to participate in the care of your patient. Dictated and Authenticated by: Emil Guerrier MD [facility] General Date/Time Provider Initiated Documentation: 05/18/19 19:46. HPI Narrative: This is a 43-year-old male with a past medical history of chronic alcoholism and intoxication, COPD, GERD, history of hepatitis C, PTSD, schizoaffective disorder, who presents today for evaluation of fall while intoxicated. Per EMS and law enforcement he was on the stoop of his apartment complex when while trying to get up due to his intoxication he had a mechanical slip and fall forward. He fell down greater than 7 steps. Unknown loss of consciousness. He was able to get up on his own, he did require the help of law enforcement to get back up to the top of his stoop. It is small abrasion to his face, EMS was called, because of the mechanism he is brought to the ER for further evaluation. Currently the patient is notably intoxicated but he has no complaints. He is a notably poor historian. He denies any head neck chest abdomen pelvis or extremity pain. Uncertain tetanus status. No other modifying factors or complaints. No history of blood thinner use. Related Data Home Medications Medication Instructions Recorded Confirmed acetaminophen 325 mg capsule 650 mg PO ONCE PRN cap 04/25/19 05/03/19 benzocaine 10 % mucosal gel 1 applic MM Q6H PRN gm 04/27/19 05/03/19 celecoxib 100 mg capsule 100 mg PO BID 04/27/19 05/03/19 clonazepam 1 mg tablet 1 mg PO BID 04/27/19 05/03/19 saliva stimulant comb. no.3 1 applic MM BID PRN ml 04/27/19 05/03/19 sodium chloride 0.65 % nasal spray 1 spray RICKIE Q12H PRN ml 04/27/19 05/03/19 aerosol venlafaxine 150 mg tablet,extended 150 mg PO DAILY 04/27/19 05/03/19 release 24 hr albuterol sulfate 90 mcg/actuation 1 puff IH Q6H PRN #8.5 gm 04/30/19 05/03/19 aerosol inhaler haloperidol 1 mg tablet 4 mg PO BID tab 04/30/19 05/03/19 haloperidol 5 mg tablet 5 mg PO Q12H PRN tab 04/30/19 05/03/19 multivitamin 1 tab PO DAILY 04/30/19 05/03/19 quetiapine 200 mg tablet 200 mg PO HS tab 04/30/19 05/03/19 tramadol 50 mg tablet 50 mg PO BID 04/30/19 05/03/19 vitamin E 200 unit capsule 400 unit PO DAILY cap 04/30/19 05/03/19 calcium carbonate [Tums] 200 mg PO QID #30 tab 05/17/19 Previous Rx's Medication Instructions Recorded albuterol sulfate 90 mcg/actuation 1 puff IH Q6H PRN #8.5 gm 04/30/19 aerosol inhaler calcium carbonate [Tums] 200 mg PO QID #30 tab 05/17/19 Allergies Allergy/AdvReac Type Severity Reaction Status Date / Time lactose AdvReac Verified 05/08/19 11:41 General Stated Complaint: Trauma ESTHER: 3 Review of Systems Review of Systems ROS Unobtainable: All systems reviewed & are unremarkable except as noted in HPI and below PFSH Social History Smoking/Tobacco Use Status: Current every day Tobacco Type: cigarettes Tobacco: How many years used: 30 Alcohol Intake: current Alcohol Intake frequency: 3 or more drinks per day Alcohol type: beer and hard liquor Drug use: Occasionally Substance use type: marijuana Household members: other Details: Lives in Assisted Living Home Housing: other Details: [facility] Communication Needs: None Education Level: other Details: 9th grade current occupation: disabled What type of physical activity do you participate in: none Seatbelt use: always Drive intox or ride w/intox bus driver: No Water heater temp set <120 deg: Yes Working smoke detector in home: Yes Fire extinguisher in home: Yes Carbon monox detector in home: Yes Do you feel safe at home: No (unable to assess) Do you feel safe in your relationship?: No Additional Social history: patient says he is homeless Exam Narrative Exam Narrative: 1.Const: Well-nourished, Well-developed, appearing stated age 2.Eyes: PERRL, no conjunctival injection, and symmetrical lids. 3.ENT: Atraumatic external nose and ears. Moist MM. Neck: Symmetric, trachea midline, No thyromegaly. There is no evidence of raccoon eyes, orantes sign, CSF rhinorrhea, mastoid tenderness, cranial crepitus, hemotympanum, exophthalmos, or hyphema. Patient demonstrates intact dentition with no signs of tooth avulsion or fracture, no signs of jaw deformity, no evidence of a LeFort's fracture, with an intact palate, nose and orbital region. There is no evidence of a nasal septal hematoma. No proptosis. Jaw closes symmetrically. Airway is clear. 4.CVS: Regular rate and rhythm, Normal s1 and s2. No murmurs, carotid bruits, rubs, or gallops. Radial pulses 2+ bilaterally and symmetric. Dorsalis pedis pulses 2+ bilaterally and symmetric. 2+ capillary refill. No evidence of distant heart sounds. No extremity edema. No evidence of gross hemorrhage. 5.RESP: Airway clear, no obstructions. No abrasions or ecchymosis. Chest movement symmetric with respirations. No chest wall tenderness. Trachea midline. No crepitus. No step offs. No paradoxical movements. Lungs are clear to auscultation bilaterally. No rales, rhonchi, wheezing or stridor. Breath sound symmetric. No Sucking chest wounds. No clinical evidence of significant chest trauma. 6.GI: Soft, Nontender/Nondistended, No hepatosplenomegaly. No guarding or rebound. 7.MSK: No gross deformities or discolorations or lesions. Tolerates full range of motion of extremities without tenderness. All compartments of upper and lower extremities are soft with no tenderness. Vascular exam demonstrates brisk capillary refill and intact pulses in all extremities. Pelvic exam demonstrates a stable pelvis, nontender to lateral compression and palpation of symphysis pubis.. No clinical evidence of significant musculoskeletal trauma. No midline cervical spine tenderness, no midline thoracic or lumbar spine tenderness. Normal movements of the upper and lower extremities. 8.Skin: Warm, Dry. Mild abrasions over the nasal bridge and forehead. 9.Neuro: police officer crime prevention II-XII grossly intact. Sensation grossly intact, no focal neurologic deficits. 10.Psych: Notably intoxicated, responds to all questions and follows commands. GCS of 14 secondary to mild slurring of words with his intoxication Course Vital Signs Vital signs: Vital Signs Temperature 36.8 C 05/18/19 19:38 Pulse 94 H 05/18/19 19:38 Respiratory Rate 16 05/18/19 19:38 Blood Pressure 138/89 05/18/19 19:38 Pulse Oximetry 97 05/18/19 19:38 Temperature 36.8 C 05/18/19 19:38 Temperature Source Skin 05/18/19 19:38 Pulse 94 H 05/18/19 19:38 Respiratory Rate 16 05/18/19 19:38 Blood Pressure 138/89 05/18/19 19:38 Blood Pressure Position Supine 05/18/19 19:38 Pulse Oximetry 97 05/18/19 19:38
[2019-05-18 20:08] LABS: HCO3 (Venous) 28 mmol/L (22-28); O2 Sat (Venous) 53 % (70-80); TCO2 (Venous) 24 mmol/L (22-29); pCO2 (Venous) 51 mm/Hg (34-47); pH (Venous) 7.35 (7.32-7.43); pO2 (Venous) 30 mm/Hg (28-44)
[2019-05-18 20:18] LABS: Abs Immature Grans 0.02 k/cumm (0.0-0.09); Absolute Basophil Count 0.03 k/cumm (0.0-0.2); Absolute Eosinophil Count 0.02 k/cumm (0.0-0.7); Absolute Lymphocyte Count 3.54 k/cumm (1.2-3.4); Absolute Monocyte Count 1.15 k/cumm (0.11-0.7); Absolute Neutrophil Count 6.36 k/cumm (1.2-6.7); Basophils % 0.3; Eosinophils % 0.2; HCT 49.7 % (40.0-50.0); Immature Grans % 0.2; Lymphocytes % 31.8; Mean Corp. HGB Concentration 34.2 g/dL (32.0-36.0); Mean Corpuscular Hemoglobin 30.7 pg (27.0-33.0); Mean Corpuscular Volume 89.7 fL (80-95); Mean Platelet Volume 9.6 fL (8.0-11.0); Monocytes % 10.3; Neutrophils % 57.2; Platelet Count 293 x1000/uL (130-400); RBC 5.54 m/cumm (4.50-6.00); RBC Distribution Width 13.9 % (11.8-14.1); White Blood Cell Count 11.12 k/cumm (4.4-10.8)
[2019-05-18 20:19] LABS: Lipase 94 U/L (73-393)
[2019-05-18 20:24] LABS: ALT 32 U/L (16-63); AST 23 U/L (15-37); Albumin 4.3 g/dL (3.4-5.0); Alkaline Phosphatase 88 U/L (46-116); Anion Gap 13.4 mmol/L (3-11); BUN 8 mg/dL (7-18); Bilirubin, Total 0.3 mg/dL (0.2-1.0); CO2 26.6 mmol/L (21.0-32.0); CREATININE 0.73 mg/dL (0.70-1.30); Chloride 100 mmol/L (98-107); Glucose 93 mg/dL (70-100); Potassium 3.2 mmol/L (3.5-5.1); Sodium 140 mmol/L (136-145); Total Protein 8.4 g/dL (6.4-8.2)
[2019-05-18 20:26] LABS: ETHANOL BLOOD 322.3 mg/dL (<3); Magnesium 2.6 mg/dL (1.8-2.4)
[2019-05-18 20:27] LABS: PTT Activated 23.3 sec (21.0-31.4); Prothrombin Time 9.6 sec (9.3-11.0)
[2019-05-18] MEDS: Omnipaque 350 MG/ML 100 ML BTL IJ (20:30)
--- NOTE | 2019-05-18 21:56 | DI.VRAD_ITS ---
EXAM: CT Chest With Contrast EXAM DATE/TIME: 05/18/2019 7:56 PM CLINICAL HISTORY: 43 years old, male; Other: Trauma, drunk, >7 steps on concrete; Additional info: Patient uncooperative significant motion artifacts, did not repeat. TECHNIQUE: Imaging protocol: Computed tomography of the chest with intravenous contrast. Radiation optimization: All CT scans at this facility use at least one of these dose optimization techniques: automated exposure control; mA and/or kV adjustment per patient size (includes targeted exams where dose is matched to clinical indication); or iterative reconstruction. COMPARISON: No relevant prior studies available. FINDINGS: Thyroid: The visualized thyroid gland is unremarkable. Lungs: No tracheobronchial abnormalities. No infiltrates or edema. No pulmonary nodules or mass lesions are identified. Pleural space: No pleural effusions. No pneumothorax. Heart: Heart size normal. Mediastinum: The esophagus is largely contracted without gross abnormality. Pulmonary arteries: The pulmonary arteries demonstrate no gross abnormality. Aorta: The aorta enhances appropriately without evidence of dissection or aneurysm. No mediastinal hematoma. Lymph nodes: No supraclavicular or axillary adenopathy. No mediastinal or hilar adenopathy. Bones/joints: No acute osseous abnormalities are identified. Soft tissues: Soft tissues of the thoracic wall demonstrate no gross abnormality. IMPRESSION: No acute thoracic process is identified. EXAM: CT Abdomen and Pelvis With Contrast EXAM DATE/TIME: 05/18/2019 7:56 PM CLINICAL HISTORY: 43 years old, male; Other: Trauma, drunk, >7 steps on concrete; Additional info: Patient uncooperative significant motion artifacts, did not repeat. TECHNIQUE: Imaging protocol: Computed tomography of the abdomen and pelvis with intravenous contrast. COMPARISON: No relevant prior studies available. FINDINGS: Liver: Normal size and contour. No mass lesions. No intrahepatic biliary ductal dilatation. Gallbladder and bile ducts: Normal. No calcified stones. No ductal dilation. Pancreas: Normal. No inflammatory changes or ductal dilation. Spleen: There is irregular hypodensity projecting in the anterior splenic margin on series 35, images 50-55, however correlation with coronal and sagittal reconstructions confirm significant respiratory motion artifact at this level and there is no perisplenic stranding present. This is felt to be artifactual and is not felt to represent splenic laceration. Adrenals: Normal. No adrenal mass. Kidneys and ureters: No acute abnormalities. No hydronephrosis or hydroureter. No urinary tract stones are identified. Stomach and bowel: The visualized distal esophagus and stomach are normal. The small bowel is normal with no evidence of obstruction. No acute colonic abnormalities. Appendix: The appendix is normal in caliber and demonstrates no evidence of appendicitis. Intraperitoneal space: No free fluid or air. Vasculature: No acute process. No abdominal aortic aneurysm. Lymph nodes: No adenopathy. Bladder: The urinary bladder is very distended measuring 20 cm craniocaudal with the bladder dome reaching the level of the umbilicus. Consider Smith catheter placement. Reproductive: Unremarkable as visualized. Bones/joints: No acute osseous abnormalities. Soft tissues: Unremarkable. IMPRESSION: 1. Motion artifact produces mild overall limitation to the exam. 2. No acute injuries are identified in the abdomen/pelvis. 3. The urinary bladder is very distended measuring 20 cm craniocaudal. Consider Smith catheter placement. Dictated and Authenticated by: Emil Guerrier MD. Ordering:SHAWN Sena MD
--- NOTE | 2019-05-18 22:07 | DI.VRAD_ITS ---
EXAM: CT Head Without Contrast EXAM DATE/TIME: 05/18/2019 7:56 PM CLINICAL HISTORY: 43 years old, male; Injury or trauma; Initial encounter; Blunt trauma (contusions or hematomas); Consciousness not specified; Injury date: 05/18/2019; Injury details: Fall >7 steps onto concrete, ETOH on board; Additional info: Patient uncooperative significant motion artifacts, repeated exam TECHNIQUE: Imaging protocol: Computed tomography of the head without contrast. Radiation optimization: All CT scans at this facility use at least one of these dose optimization techniques: automated exposure control; mA and/or kV adjustment per patient size (includes targeted exams where dose is matched to clinical indication); or iterative reconstruction. COMPARISON: CT HEAD WO 05/07/2019 9:29 PM FINDINGS: Detail is limited secondary to motion degradation of image quality. Brain: Typical for age. No hemorrhage. No evidence of acute infarct. No mass. Ventricles: No ventriculomegaly. Bones/joints: Unremarkable. Sinuses: No sinus fluid. Mastoid air cells: Unremarkable. Soft tissues: Unremarkable. IMPRESSION: No obvious acute intracranial abnormality. EXAM: CT Cervical Spine Without Contrast EXAM DATE/TIME: 05/18/2019 7:56 PM CLINICAL HISTORY: 43 years old, male; Injury or trauma; Initial encounter; Blunt trauma (contusions or hematomas); Consciousness not specified; Injury date: 05/18/2019; Injury details: Fall >7 steps onto concrete, ETOH on board; Additional info: Patient uncooperative significant motion artifacts, repeated exam TECHNIQUE: Imaging protocol: Computed tomography images of the cervical spine without contrast. Radiation optimization: All CT scans at this facility use at least one of these dose optimization techniques: automated exposure control; mA and/or kV adjustment per patient size (includes targeted exams where dose is matched to clinical indication); or iterative reconstruction. COMPARISON: CT HEAD WO 05/07/2019 9:29 PM FINDINGS: Vertebrae: No acute fracture. Normal alignment. Vertebral body heights preserved. Discs/Spinal canal/Neural foramina: Typical for age. Soft tissues: Unremarkable. Lungs: Lung apices are unremarkable as visualized. IMPRESSION: No acute findings. Dictated and Authenticated by: Obed Glass MD. Ordering:SHAWN Sena MD
--- NOTE | 2019-05-18 22:57 | NUR.NOTE ---
Nursing Note: Patient taken out of the ER prior to receiving his tetanus shot. [facility] [employer] was notified and they refused to give the shot to him and or transport him back here to receive it. They verbally made an agreement that they would write and verbally notify patient of his need for the shot. Mental health was also notified to make patient aware.
== END 2019-05-18 22:32 | disposition home or self-care (01) ==
PROVIDERS: Emergency Provider Student in an Organized Health Care Education/Training Program; PCP Nurse Practitioner
DX: F10.129 Alcohol abuse with intoxication, unspecified (principal); Y90.8 Blood alcohol level of 240 mg/100 ml or more; E87.6 Hypokalemia; E83.41 Hypermagnesemia; S00.31XA Abrasion of nose, initial encounter; S00.81XA Abrasion of other part of head, initial encounter; W10.8XXA Fall (on) (from) other stairs and steps, initial encounter; J44.9 Chronic obstructive pulmonary disease, unspecified; F17.210 Nicotine dependence, cigarettes, uncomplicated; R40.2412 Glasgow coma scale score 13-15, at arrival to emergency department
CPT/HCPCS: 36415; 74177; 80053; 82805; 83690; 96360; 99285; 70450; 71260; 72125; 80320; 83735; 85025; 85610; 85730; J3490

== ENCOUNTER 2019-05-20 01:51 | Emergency (ER) | payer MEDICAID, SELFPAY ==
[2019-05-20 01:56] VITALS: BP 134/81; PULSE 98; RESP 16; TEMP 37; O2SAT 96
--- NOTE | 2019-05-20 01:58 | W.ED.GENAD ---
Discharge Plan Disposition Patient Disposition: OTHER Condition: Stable Discharge Details Chief Complaint: GenMedical Clinical Impression: Alcohol abuse Primary Care Provider: Elvi Amin ED Provider: Nathen Nicholas Home Meds and New Rx's Prescriptions: No Action multivitamin Tablet 1 tab PO DAILY RF: 0 tramadol 50 mg tablet 50 mg PO BID RF: 0 haloperidol 5 mg tablet 5 mg PO Q12H PRN RF: 0 albuterol sulfate [Ventolin HFA] 90 mcg/actuation HFA aerosol inhaler 1 puff IH Q6H PRN (Reason: shortness of breath or wheezing) Qty: 8.5 RF: 2 acetaminophen 325 mg capsule 650 mg PO ONCE PRNRF: 0 clonazepam 1 mg tablet 1 mg PO BID RF: 0 celecoxib [Celebrex] 100 mg capsule 100 mg PO BID RF: 0 Biotene Moisturizing [place]outh [place],Non-Aerosol 1 applic MM BID PRNRF: 0 venlafaxine 150 mg tablet extended release 24hr 150 mg PO DAILY RF: 0 sodium chloride [Deep Sea Nasal] 0.65 % aerosol,spray 1 spray RICKIE Q12H PRN RF: 0 Anbesol (benzocaine) 10 % gel 1 applic MM Q6H PRN RF: 0 haloperidol 1 mg tablet 4 mg PO BID RF: 0 quetiapine [Seroquel] 200 mg tablet 200 mg PO HS RF: 0 vitamin E 200 unit capsule 400 unit PO DAILY RF: 0 calcium carbonate [Tums] 200 mg calcium (500 mg) tablet,chewable 200 mg PO QID Qty: 30 RF: 0 Discharge Instructions Instructions: Abuse of Alcohol (ED) Additional Instructions: At this time you are medically cleared but intoxicated. Please stop drinking alcohol. If you notice any worsening of your symptoms, or any new symptoms such as vomiting, diarrhea, fever, chills, shortness of breath, chest pain, numbness, weakness, or fainting , please return immediately to the emergency department for reevaluation. Please follow up with your primary care provider as soon as possible for reassessment and reevaluation. As always, it was a pleasure participating in your medical care today. Referrals: Elvi Amin, [employer] CL[employer] [facility] [Primary Care Provider] - Medical Decision Making This is a 43-year-old male with a past medical history of chronic alcoholism who presents today intoxicated. He was here yesterday and had a notable work-up of CT scan of his head neck chest abdomen and pelvis, notably unremarkable laboratory work-up showing no evidence of anion gap metabolic acidosis, other severe abnormality. He did not receive his tetanus shot that he was ordered yesterday, he will receive that today. He presents today for evaluation of intoxication after being found in front of the whiskey [place]. Physical exam shows no evidence of significant trauma to the head neck chest abdomen or pelvis. Abrasions are well-healing from yesterday. He was notably rehydrated yesterday. Clinically he appears medically cleared just intoxicated at this time. We will get alcohol level at the request of police. Pending this I do feel that he is clinically stable to go to the intoxication transition area with the police. 2:41 AM Alcohol level is expectantly elevated, however clinically aside from mild intoxication he shows no other concerning abnormalities. Vital signs are stable, notable work-up that was performed yesterday demonstrated no significantly concerning etiologies at that time either. At this time aside from mild intoxication I feel that he can be medically cleared for disposition to the intoxication area at long term. 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 Multiple opportunities have been pursued for the patient to help him change his behavior however in spite of all this he continues to consume his life with alcohol. We again emphasized the importance of close continued follow-up with his caseworkers when he is discharged from long term tomorrow. Unfortunately at this time there is no acute life-threatening medical process that is seen clinically, and the patient's future truly depends on his own desire to make changes. We have given him all resources that we have available to him at this time. I have extensively reviewed the treatment plan and discharge instructions with the patient. I have addressed all patient concerns at this time. The patient was made aware of what symptoms to monitor for that would warrant a return to the emergency department. Discussed the plan with the patient, they demonstrate verbal understanding and agreement with our assessment and plan at this time however in spite of verbal agreement it is slightly unhelpful due to his current intoxicated status.. HPI General Date/Time Provider Initiated Documentation: 05/20/19 01:55. HPI Narrative: This is a 43-year-old male with a past medical history of PTSD, GERD, polysubstance abuse, notable chronic alcoholism who presents today for evaluation of intoxication. Patient has been seen here on a near daily basis over the last week for alcohol intoxication. He repeatedly becomes intoxicated, seen and evaluated in the ED, medically cleared most often after a notable laboratory and imaging work-up including yesterday at which point he had a benign CT scan of the head neck chest abdomen and pelvis. Laboratory work-up yesterday demonstrated no signs of toxic alcohol syndrome. He is then regularly discharged to the intoxication simon at the long term, and once he gets out he then very rapidly makes his way back to the local bars. Tonight he presents for being found intoxicated again outside of the whiskey [place]. He again has been drinking throughout the day. He denies any trauma. EMS and police were called when he was noted to be drunk. No acute trauma. No other abnormalities. Blood glucose is normal. Breath alcohol level was not done today in the field secondary to patient noncompliance. No other modifying factors at this time. Related Data Home Medications Medication Instructions Recorded Confirmed acetaminophen 325 mg capsule 650 mg PO ONCE PRN cap 04/25/19 05/03/19 benzocaine 10 % mucosal gel 1 applic MM Q6H PRN gm 04/27/19 05/03/19 celecoxib 100 mg capsule 100 mg PO BID 04/27/19 05/03/19 clonazepam 1 mg tablet 1 mg PO BID 04/27/19 05/03/19 saliva stimulant comb. no.3 1 applic MM BID PRN ml 04/27/19 05/03/19 sodium chloride 0.65 % nasal spray 1 spray RICKIE Q12H PRN ml 04/27/19 05/03/19 aerosol venlafaxine 150 mg tablet,extended 150 mg PO DAILY 04/27/19 05/03/19 release 24 hr albuterol sulfate 90 mcg/actuation 1 puff IH Q6H PRN #8.5 gm 04/30/19 05/03/19 aerosol inhaler haloperidol 1 mg tablet 4 mg PO BID tab 04/30/19 05/03/19 haloperidol 5 mg tablet 5 mg PO Q12H PRN tab 04/30/19 05/03/19 multivitamin 1 tab PO DAILY 04/30/19 05/03/19 quetiapine 200 mg tablet 200 mg PO HS tab 04/30/19 05/03/19 tramadol 50 mg tablet 50 mg PO BID 04/30/19 05/03/19 vitamin E 200 unit capsule 400 unit PO DAILY cap 04/30/19 05/03/19 calcium carbonate [Tums] 200 mg PO QID #30 tab 05/17/19 Previous Rx's Medication Instructions Recorded albuterol sulfate 90 mcg/actuation 1 puff IH Q6H PRN #8.5 gm 04/30/19 aerosol inhaler calcium carbonate [Tums] 200 mg PO QID #30 tab 05/17/19 Allergies Allergy/AdvReac Type Severity Reaction Status Date / Time lactose AdvReac Verified 05/20/19 02:11 General ESTHER: 3 Review of Systems Review of Systems ROS Unobtainable: All systems reviewed & are unremarkable except as noted in HPI and below PFSH Social History Smoking/Tobacco Use Status: Current every day Tobacco Type: cigarettes Tobacco: How many years used: 30 Alcohol Intake: current Alcohol Intake frequency: 3 or more drinks per day Alcohol type: beer and hard liquor Drug use: Occasionally Substance use type: marijuana Details: Household members: other Details: Lives in Assisted Living Home Housing: other Details: [facility] Communication Needs: None Education Level: other Details: 9th grade current occupation: disabled What type of physical activity do you participate in: none Seatbelt use: always Drive intox or ride w/intox 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 3.ENT: Atraumatic external nose and ears. Moist MM. Neck: Symmetric, trachea midline, No thyromegaly. There is no evidence of raccoon eyes, orantes sign, CSF rhinorrhea, mastoid tenderness, cranial crepitus, hemotympanum, exophthalmos, or hyphema. Patient demonstrates intact dentition with no signs of tooth avulsion or fracture, no signs of jaw deformity, no evidence of a LeFort's fracture, with an intact palate, nose and orbital region. There is no evidence of a nasal septal hematoma. No proptosis. Jaw closes symmetrically. Airway is clear. 4.CVS: Regular rate and rhythm, Normal s1 and s2. No murmurs, carotid bruits, rubs, or gallops. Radial pulses 2+ bilaterally and symmetric. Dorsalis pedis pulses 2+ bilaterally and symmetric. 2+ capillary refill. No evidence of distant heart sounds. No extremity edema. No evidence of gross hemorrhage. 5.RESP: Airway clear, no obstructions. No abrasions or ecchymosis. Chest movement symmetric with respirations. No chest wall tenderness. Trachea midline. No crepitus. No step offs. No paradoxical movements. Lungs are clear to auscultation bilaterally. No rales, rhonchi, wheezing or stridor. Breath sound symmetric. No Sucking chest wounds. No clinical evidence of significant chest trauma. 6.GI: Soft, Nontender/Nondistended, No hepatosplenomegaly. No guarding or rebound. 7.MSK: No gross deformities or discolorations or lesions. Tolerates full range of motion of extremities without tenderness. All compartments of upper and lower extremities are soft with no tenderness. Vascular exam demonstrates brisk capillary refill and intact pulses in all extremities. Pelvic exam demonstrates a stable pelvis, nontender to lateral compression and palpation of symphysis pubis.. No clinical evidence of significant musculoskeletal trauma. 8.Skin: Warm, Dry. No rashes or lesions. 9.Neuro: chip separator II-XII grossly intact. Sensation grossly intact, no focal neurologic deficits. 10.Psych: Notably intoxicated
[2019-05-20] MEDS: Tetanus & Diphtheria Tox,ADULT 0.5 ML VIAL IM (02:27)
[2019-05-20 02:35] LABS: ETHANOL BLOOD 357.3 mg/dL (<3)
== END 2019-05-20 02:52 | disposition other institution (70) ==
PROVIDERS: Emergency Provider Student in an Organized Health Care Education/Training Program; PCP Nurse Practitioner
DX: F10.220 Alcohol dependence with intoxication, uncomplicated (principal)
CPT/HCPCS: 36415; 90471; 99283; 80320